=== PATIENT | female | born 1975 | race Caucasian/White ===

== ENCOUNTER → 2020-03-06 18:00 | Outpatient (CLI) | payer OTHER | END | disposition home or self-care (01) | LOC: PPH VACUNA 18:00 | DX: Z23 Encounter for immunization (principal) ==

== ENCOUNTER 2021-02-28 09:00 | Outpatient (CLI) | payer OTHER | END 2021-02-28 09:15 | disposition home or self-care (01) | LOC: PPH VACUNA 09:00 | PROVIDERS: ATTEND Emergency Medicine Pediatric Emergency Medicine | DX: Z23 Encounter for immunization (principal) ==